=== PATIENT | female | born 1985 | race Caucasian/White ===

== ENCOUNTER 2021-05-12 13:20 | Emergency (ER) | payer BC, SELFPAY ==
[2021-05-12 13:38] VITALS: BP 170/97; PULSE 92; RESP 16; TEMP 36.9; O2SAT 99; BMI 29.8
--- NOTE | 2021-05-12 13:59 | ED.EYEPROB ---
HPI - Eye Problem General Chief complaint: Eye Problems Stated complaint: eye issues Time Seen by Provider: 05/12/21 13:58 Source: patient Mode of arrival: ambulatory Limitations: no limitations History of Present Illness HPI Narrative: 36 y/o female presents to the ER for evaluation of acute onset of a dilated left pupil that she noticed when she was at work today. She states yesterday she noticed increased watering in her eyes, left more than right so she started using OTC allergy eye drops. She woke up this morning with slight redness of the eyes but no discharge or crusting. No vision changes and she does not wear contact lenses. This morning when at work and she went to the bathroom she noticed her left pupil was much larger than her right. She had used her allergy eye drops about an hour before, in both eyes but more in the left. MD chief complaint: other (left eye w/ dilated pupil, increased watering) Onset (ago): hour(s) Onset description: sudden Duration: improved Location: left eye Eye Symptoms: other (increased lacrimation, mydriasis) Place: work Mechanism: none Severity: moderate If Pain, Quality: aching Associated symptoms: none Treatments Prior to Arrival: OTC eye drops Related Data Previous Rx's Medication Instructions Recorded cetirizine 10 mg tablet (Zyrtec) 10 mg PO DAILY #14 tab 05/12/21 Allergies Allergy/AdvReac Type Severity Reaction Status Date / Time codeine Allergy Hives Verified 05/12/21 14:44 Review of Systems Review of Systems: Constitutional: No Fever, No Chills ENT/Mouth: No sore throat, No Rhinorrhea Eyes: No Eye Pain, No Swelling, + Redness, +anisocoria, +increase in lacrimation Cardiovascular: No Chest Pain, No SOB Respiratory: No Cough, No Sputum Gastrointestinal: No Nausea, No Vomiting Genitourinary: No Dysuria, No Urinary Frequency, No Hematuria Musculoskeletal: No joint pain, No Myalgias Skin: No Skin Lesions, No rash Neuro: No Weakness, No Numbness, No Dizziness, No Headache Psych: + Anxiety/Panic, No Depression Heme/Lymph: No Bruising, No Lymphadenopathy PMFSH Past Medical History Medical History (Updated 05/12/21 @ 14:36 by RACHID Lucia) No known health problems Social History Social History Advance Directives: No Advance Directives Information Provided: Yes Physical Exam Vital Signs: Vital Signs: Last Vital Signs Temp 98.4 F 05/12/21 13:38 Pulse 75 05/12/21 15:03 Resp 16 05/12/21 15:03 BP 144/84 H 05/12/21 15:03 Pulse Ox 99 05/12/21 15:03 BMI result Body Mass Index 29.8 Appearance: Alert. Oriented X3. No acute distress. Eyes: Left pupil 5mm, right pupil 3mm, both equal round and reactive to light. EOMI, no nystagmus. injected conjuctiva. normal appearing sclera, no discharge. normal [facility] ENT: Pharynx normal. Neck: Normal inspection. Neck supple. CVS: Normal heart rate and rhythm. Pulses normal. Respiratory: No respiratory distress. Breath sounds normal. Abdomen: Soft and nontender. +BS x4 Skin: Skin warm and dry. Normal skin color. Normal skin turgor. No rashes. Extremities: No lower extremity edema. Neuro: Oriented X 3. No motor deficit. No sensory deficit. Steady gait. Nonfocal. Course Course Course Narrative: 36-year-old female presenting to the ER with anisocoria and increased lacrimation. Her left pupil was noted to be significantly more dilated than the right when she was at work today. She was previously using allergy eyedrops in the eye for increased lacrimation. The ingredients in the seasonal allergy eyedrops contain naphazaoline-pheniramine which are known to cause mydriasis. It is already improved. She has no vision changes and her neuro exam is completely nonfocal. She was counseled and reassured about her symptoms and is very relieved. BP to be repeated now that she is not anxious. Reevaluation(s) Reevaluation #1: BP much improved. Stable for d/c home. Will start Zyrtec for allergy symptoms. Critical Care Time Critical Care Time Critical Care Time: No Discharge Plan Discharge Clinical Impression: Medication reaction, Seasonal allergies Patient Disposition: Home, Self-Care Instructions: Allergies (ED) Additional Instructions: STOP using the allergy eye drops - they were the cause of your dilated pupil and contributed to increase watering in the eyes Start taking the prescribed medication for seasonal allergies. Take daily for a full 2 weeks to see if there is any improvement. Follow up with your doctor as needed. If you develop new or worsening symptoms call 911 or come back to the ER for further evaluation. Prescriptions: New cetirizine [Zyrtec] 10 mg tablet 10 mg PO DAILY Qty: 14 0RF Stand Alone Forms: Work/School Release Interventions: ED Discharge Assessment Last Done: 05/12/21 15:09
[2021-05-12 15:03] VITALS: BP 144/84; PULSE 75; RESP 16; O2SAT 99
== END 2021-05-12 15:10 | disposition home or self-care (01) ==
PROVIDERS: Emergency Provider Emergency Medicine
DX: H57.02 Anisocoria (principal); H57.13 Ocular pain, bilateral; Z79.899 Other long term (current) drug therapy
CPT/HCPCS: 99283; 99284